=== PATIENT | female | born 1990 | race Caucasian/White ===

== ENCOUNTER → 2019-05-27 13:40 | Outpatient (CLI) | payer BC, SELFPAY ==
--- NOTE | ~2019-05-27 | US_ITS ---
EXAMINATION: US OB <= 14 weeks fetus EXAM DATE: 05/27/2019 14:28 INDICATION: , for dating. First trimester. TECHNIQUE: Pelvic obstetrical transabdominal sonogram was performed by a technologist. There are mu ltiple grayscale and Doppler images available for interpretation. There are no earlier studies of th is gestation for comparison. FINDINGS: Uterus measures 13.4 x 6.8 x 9.0 cm. There is intrauterine gestation sac. pole with heart rate confirmed at 165 beats per minute. The 2.6 cm crown-rump length corresponds to estimated gestational age by ultrasound of 9 weeks 3 days, estimated date of confinement 12/26. Yolk sac is i dentified. There is no sonographic evidence of subchorionic hemorrhage. The ovaries are morpholog ically normal. IMPRESSION: Intrauterine gestation, age by ultrasound 9 weeks 3 days. Reviewed, dictated and finalized at location A.
== END ==
PROVIDERS: Visit Provider Nurse Practitioner
DX: Z36.87 Encounter for antenatal screening for uncertain dates (principal); Z3A.09 9 weeks gestation of pregnancy
CPT/HCPCS: 76801